=== PATIENT | female | born 1945 | race Caucasian/White ===

== ENCOUNTER 2017-09-26 03:50 | Outpatient (CLI) | payer MEDICARE, OTHER | END 2017-09-26 23:59 | disposition home or self-care (01) | LOC: DIABETIC 03:50 | PROVIDERS: ATTEND Family Medicine | DX: E11.9 Type 2 diabetes mellitus without complications (principal); I10 Essential (primary) hypertension | CPT/HCPCS: G0108 ==

== ENCOUNTER 2018-01-29 02:07 | Outpatient (CLI) | payer MEDICARE, OTHER | END 2018-01-29 23:59 | disposition home or self-care (01) | LOC: DIABETIC 02:07 | PROVIDERS: ATTEND Family Medicine | DX: E11.65 Type 2 diabetes mellitus with hyperglycemia (principal); E78.5 Hyperlipidemia, unspecified; I10 Essential (primary) hypertension; Z79.899 Other long term (current) drug therapy; Z88.0 Allergy status to penicillin; Z90.710 Acquired absence of both cervix and uterus | CPT/HCPCS: G0108 ==

== ENCOUNTER 2018-05-14 00:21 | Outpatient (CLI) | payer MEDICARE, OTHER | END 2018-05-14 23:59 | disposition home or self-care (01) | LOC: DIABETIC 00:21 | PROVIDERS: ATTEND Family Medicine | DX: E11.65 Type 2 diabetes mellitus with hyperglycemia (principal); E78.5 Hyperlipidemia, unspecified; I10 Essential (primary) hypertension; Z79.84 Long term (current) use of oral hypoglycemic drugs; Z79.899 Other long term (current) drug therapy; Z90.710 Acquired absence of both cervix and uterus; Z98.890 Other specified postprocedural states; Z88.0 Allergy status to penicillin; Z91.048 Other nonmedicinal substance allergy status | CPT/HCPCS: G0108 ==

== ENCOUNTER 2023-02-14 15:08 | Outpatient (CLI) | payer MEDICARE, MEDICAID | END 2023-02-14 23:59 | disposition home or self-care (01) | LOC: RAD 15:08 | PROVIDERS: ATTEND Otolaryngology | DX: R13.12 Dysphagia, oropharyngeal phase (principal); R13.14 Dysphagia, pharyngoesophageal phase; K21.9 Gastro-esophageal reflux disease without esophagitis | CPT/HCPCS: 74230 ==